=== PATIENT | male | born 1935 | race Caucasian/White ===

== ENCOUNTER → 2018-06-10 | Outpatient (CLI) | payer MEDICARE, BC | END | disposition home or self-care (01) | LOC: CFH 09:58 | PROVIDERS: ATTEND Physician Assistant | DX: R60.9 Edema, unspecified (principal); M79.604 Pain in right leg; M79.605 Pain in left leg; I10 Essential (primary) hypertension; M19.90 Unspecified osteoarthritis, unspecified site; E78.5 Hyperlipidemia, unspecified | CPT/HCPCS: 93970 ==

== ENCOUNTER → 2018-08-14 | Outpatient (CLI) | payer MEDICARE, BC ==
[~2018-08-14] MED LIST: ASPI-496 PO; BRIM5DRO3 EACHEYE; CALC-534 PO; CHON250C PO; FINA5TAB4 PO; FLUT9.9S NS; GLUC500T11 PO; LATA2.5D3 EACHEYE; LISI1TAB5 PO; MELO15TA24 PO; METO-99 PO; MULT-658 PO; TAMS-11 PO; VIT1CAPS10 PO; VITA400C43 PO
[2018-08-14 16:19] LABS: BASOPHILS # (AUTO) 0.02 x10^3/uL (0-0.1); BASOPHILS % (AUTO) 0 % (0-1); EOSINOPHILS # (AUTO) 0.04 x10^3/uL (0-0.4); EOSINOPHILS % (AUTO) 1 % (1-7); LYMPHOCYTES # (AUTO) 1.96 x10^3/uL (1-3.4); LYMPHOCYTES % (AUTO) 28 % (22-44); MD NO; MEAN CORPUSCULAR HEMOGLOBIN 34.6 pg (27.5-34.5); MEAN CORPUSCULAR HGB CONC 33.6 g/dL (33.2-36.2); MEAN CORPUSCULAR VOLUME 103.2 fL (81-97); MEAN PLATELET VOLUME 8.4 fL (7.4-10.4); MONOCYTES % (AUTO) 7 % (2-9); NEUTROPHILS # (AUTO) 4.61 x10^3/uL (1.8-6.8); NEUTROPHILS % (AUTO) 65 % (42-75); PLATELET COUNT 149 x10^3/uL (130-400); RED BLOOD COUNT 4.43 x10^6/uL (4.38-5.82); RED CELL DISTRIBUTION WIDTH 12.8 % (9.4-14.8)
[2018-08-14 16:23] LABS: MICROSCOPIC INDICATED
[2018-08-14 16:29] LABS: ALANINE AMINOTRANSFERASE 42 U/L (12-78); ALBUMIN 3.8 g/dL (3.4-5.0); ANION GAP 7 mmol/L (5-15); CALCIUM 9.2 mg/dL (8.5-10.1); CHLORIDE 102 mmol/L (98-107); CREATININE 0.95 mg/dL (0.7-1.3); PROTHROMBIN TIME 10.6 Seconds (9.6-11.5)
[2018-08-14 16:32] LABS: ALKALINE PHOSPHATASE 54 U/L (45-117); BILIRUBIN,TOTAL 0.7 mg/dL (0.2-1.0)
[2018-08-14 16:41] LABS: CULTURE INDICATED? NO
== END | disposition home or self-care (01) ==
LOC: STAR 15:00
PROVIDERS: ATTEND Neurological Surgery
DX: Z01.818 Encounter for other preprocedural examination (principal); J98.6 Disorders of diaphragm; M48.062 Spinal stenosis, lumbar region with neurogenic claudication; M71.38 Other bursal cyst, other site; M54.5 Low back pain
CPT/HCPCS: 36415; 71046; 72114; 80053; 81001; 85025; 85610; 85730; 93005

== ENCOUNTER 2018-08-19 05:38 | Inpatient (IN) | payer MEDICARE, BC ==
[~2018-08-19] VITALS: Ht 180.3 cm; Wt 93.3 kg
[2018-08-19] MEDS ORDERED: LACTATED RINGERS 1,000 ML IV SCH (06:25)
[2018-08-19] MEDS ORDERED: FENTANYL PF 100 MCG/2ML ONE ×2 (06:28→09:06)
[2018-08-19] MEDS ORDERED: CEFAZOLIN 1,000 MG ONE ×2 (06:29)
[2018-08-19] MEDS ORDERED: PROPOFOL 10 MG/ML, 20ML ONE (06:29)
[2018-08-19] MEDS ORDERED: DEXAMETHASONE 4 MG/ML, 1ML ONE ×2 (06:29)
[2018-08-19] MEDS ORDERED: ROCURONIUM 10MG/ML,5ML ONE (06:29)
[2018-08-19] MEDS ORDERED: SUCCINYLCHOLINE 20 MG/ML, 10ML ONE (06:29)
[2018-08-19] MEDS ORDERED: LIDOCAINE-MPF 2% ,5ML ONE (06:29)
[2018-08-19] MEDS ORDERED: PHENYLEPHRINE 10 MG/ML ONE (06:29)
[2018-08-19] MEDS ORDERED: MIDAZOLAM 1 MG/ML, 2ML ONE (06:29)
[2018-08-19] MEDS ORDERED: BUPIVACAINE/PF-EPI 0.5% 1:200K ONE (06:38)
[2018-08-19] MEDS ORDERED: VANCOMYCIN 1,000 MG ONE (06:39)
[2018-08-19] MEDS ORDERED: BACITRACIN 50,000 UNIT ONE (06:39)
[2018-08-19] MEDS ORDERED: THROMBIN 5,000 UNIT VIAL TP ONE (06:39)
[2018-08-19] MEDS ORDERED: ACETAMINOPHEN 500 MG TABLET ONE (06:41)
[2018-08-19] MEDS ORDERED: GABAPENTIN 300 MG CAPSULE ONE (06:41)
[2018-08-19] MEDS ORDERED: ESMOLOL 100 MG/10 ML ONE (06:52)
[2018-08-19] MEDS ORDERED: ACETAMINOPHEN 500 MG TABLET PO ONE (07:00)
[2018-08-19] MEDS ORDERED: GABAPENTIN 300 MG CAPSULE PO ONE (07:00)
[2018-08-19] MEDS ORDERED: MEPERIDINE/PF 25MG/0.5ML IVPush PRN (07:30)
[2018-08-19] MEDS ORDERED: HYDROmorphone 2 MG/ML, 1ML IVPush PRN (07:30)
[2018-08-19] MEDS ORDERED: FENTANYL PF 100 MCG/2ML IV PRN (07:30)
[2018-08-19] MEDS ORDERED: LABETALOL 5MG/ML, 20ML IV PRN ×2 (07:30→10:30)
[2018-08-19] MEDS ORDERED: DIAZEPAM 5 MG/ML, 2ML IVPush PRN (07:30)
[2018-08-19] MEDS ORDERED: hydrALAzine 20 MG/ML, 1ML IV PRN (07:30)
[2018-08-19] MEDS ORDERED: METOCLOPRAMIDE 5 MG/ML, 2ML IV PRN (07:30)
[2018-08-19] MEDS ORDERED: EPHEDRINE 50 MG/ML, 1ML IVPush PRN (07:30)
[2018-08-19] MEDS ORDERED: OXYcodone 5 MG/5 ML ORAL.SOL UDC PO PRN (07:30)
[2018-08-19] MEDS ORDERED: METOPROLOL 1 MG/ML, 5ML IV PRN (07:30)
[2018-08-19] MEDS ORDERED: OXYcodone 5 MG/5 ML ORAL.SOL UDC ONE (09:06)
[2018-08-19 09:55] VITALS: BP 121/62
[2018-08-19] MEDS ORDERED: DIPHENHYDRAMINE 50 MG/ML, 1ML IM PRN (10:30)
[2018-08-19] MEDS ORDERED: ONDANSETRON 2MG/ML, 2ML IV PRN (10:30)
[2018-08-19] MEDS ORDERED: FINASTERIDE MC SCH (10:30)
[2018-08-19] MEDS ORDERED: HYDROcodone/APAP 5/325 TABLET PO PRN (10:30)
[2018-08-19] MEDS ORDERED: ALPHAGAN MC SCH (10:30)
[2018-08-19] MEDS ORDERED: DIPHENHYDRAMINE 50 MG/ML, 1ML IVPush PRN (10:30)
[2018-08-19] MEDS ORDERED: DIPHENHYDRAMINE 50 MG CAPSULE PO PRN (10:30)
[2018-08-19] MEDS ORDERED: BISACODYL 10 MG SUPP PR PRN (10:30)
[2018-08-19] MEDS ORDERED: MAGNESIUM HYDROXIDE 8%, 30ML UDC PO PRN (10:30)
[2018-08-19] MEDS ORDERED: morphine SULFATE 10 MG/ML, 1ML IV PRN (10:30)
[2018-08-19] MEDS ORDERED: PROMETHAZINE 25 MG/ML, 1ML IM PRN (10:30)
[2018-08-19] MEDS ORDERED: METHOCARBAMOL 750 MG TABLET PO PRN (10:30)
[2018-08-19] MEDS ORDERED: D5%-0.9% NACL+KCL 20MEQ 1,000 ML IV SCH (10:30)
[2018-08-19 12:00] VITALS: BP 136/85
[2018-08-19] MEDS: OXYcodone/APAP 5/325MG TABLET PO PRN ×2 (13:16→23:08)
[2018-08-19] MEDS: CEFAZOLIN PMX 1GM/50ML 50 ML IVPB SCH ×2 (15:38→23:05)
[2018-08-19 20:12] VITALS: BP 150/84
[2018-08-19] MEDS: LATANOPROST OPHTH 0.005%, 2.5ML OP SCH (20:17)
[2018-08-19] MEDS ORDERED: LISINOPRIL 20 MG TABLET PO SCH (21:00)
[2018-08-19] MEDS ORDERED: HYDROCHLOROTHIAZIDE 12.5 MG CAPSULE PO SCH (21:00)
[2018-08-20 00:01] VITALS: BP 132/82
[2018-08-20] MEDS ORDERED: morphine SULFATE 10 MG/ML, 1ML IV PRN (03:30)
[2018-08-20] MEDS ORDERED: DIPHENHYDRAMINE 50 MG/ML, 1ML IVPush PRN (03:30)
[2018-08-20] MEDS ORDERED: PROMETHAZINE 25 MG/ML, 1ML IM PRN (03:30)
[2018-08-20] MEDS ORDERED: METHOCARBAMOL 750 MG TABLET PO PRN (03:30)
[2018-08-20] MEDS ORDERED: FINASTERIDE MC SCH (03:30)
[2018-08-20] MEDS ORDERED: ONDANSETRON 2MG/ML, 2ML IV PRN (03:30)
[2018-08-20] MEDS ORDERED: LABETALOL 5MG/ML, 20ML IV PRN (03:30)
[2018-08-20] MEDS ORDERED: DIPHENHYDRAMINE 50 MG/ML, 1ML IM PRN (03:30)
[2018-08-20] MEDS ORDERED: HYDROcodone/APAP 5/325 TABLET PO PRN (03:30)
[2018-08-20] MEDS ORDERED: MAGNESIUM HYDROXIDE 8%, 30ML UDC PO PRN (03:30)
[2018-08-20] MEDS ORDERED: DIPHENHYDRAMINE 50 MG CAPSULE PO PRN (03:30)
[2018-08-20] MEDS ORDERED: BISACODYL 10 MG SUPP PR PRN (03:30)
[2018-08-20] MEDS ORDERED: ALPHAGAN MC SCH (03:30)
[2018-08-20 03:46] VITALS: BP 135/72
[2018-08-20 05:25] LABS: ANION GAP 6 mmol/L (5-15); CALCIUM 7.5 mg/dL (8.5-10.1); CHLORIDE 107 mmol/L (98-107); CREATININE 0.88 mg/dL (0.7-1.3)
[2018-08-20 05:26] LABS: MD YES; MEAN CORPUSCULAR HEMOGLOBIN 35.9 pg (27.5-34.5); MEAN CORPUSCULAR HGB CONC 34.5 g/dL (33.2-36.2); MEAN CORPUSCULAR VOLUME 103.9 fL (81-97); MEAN PLATELET VOLUME 8.4 fL (7.4-10.4); PLATELET COUNT 117 x10^3/uL (130-400); RED BLOOD COUNT 3.53 x10^6/uL (4.38-5.82); RED CELL DISTRIBUTION WIDTH 13.2 % (9.4-14.8)
[2018-08-20] MEDS ORDERED: ENOXAPARIN 40 MG/0.4 ML SQ SCH (06:00)
[2018-08-20] MEDS ORDERED: ENOXAPARIN 40 MG/0.4 ML ONE (06:14)
[2018-08-20] MEDS: D5%-0.9% NACL+KCL 20MEQ 1,000 ML IV SCH ×2 (06:19→13:30)
[2018-08-20 07:28] LABS: BAND#(MANUAL) 0.16 x10^3/uL; BANDS%(MANUAL) 2 % (0-7); LYMPH#(MANUAL) 1.11 x10^3/uL (1-3.4); LYMPHS% (MANUAL) 14 % (22-44); MONOS#(MANUAL) 0.55 x10^3/uL (0.3-2.7); MONOS% (MANUAL) 7 % (2-9); SEG#(MANUAL) 6.08 x10^3/uL (1.8-6.8); SEGS% (MANUAL) 77 % (42-75)
[2018-08-20 07:33] LABS: <PLATELET ESTIMATE> DECREASED; <PLT MORPHOLOGY> NORMAL PLT MORPH; <RBC MORPHOLOGY> NORMAL
[2018-08-20 08:00] VITALS: BP 159/86
[2018-08-20] MEDS: FLUTICASONE NASAL SPRAY 16GM NAS SCH (09:00)
[2018-08-20] MEDS ORDERED: TAMSULOSIN 0.4 MG CAP.ER.24H PO SCH (09:00)
[2018-08-20] MEDS ORDERED: METOPROLOL TARTRATE 100 MG TABLET PO SCH (09:00)
[2018-08-20] MEDS: TAMSULOSIN 0.4 MG CAP.ER.24H PO SCH (09:33)
[2018-08-20] MEDS: HYDROCHLOROTHIAZIDE 12.5 MG CAPSULE PO SCH ×2 (09:33→21:08)
[2018-08-20] MEDS: LISINOPRIL 20 MG TABLET PO SCH ×2 (09:34→21:08)
[2018-08-20] MEDS: METOPROLOL TARTRATE 100 MG TABLET PO SCH (09:34)
[2018-08-20] MEDS ORDERED: SENNA/DOCUSATE TABLET ONE (09:39)
[2018-08-20] MEDS: SENNA/DOCUSATE TABLET PO SCH (09:41)
[2018-08-20 13:01] VITALS: BP 146/77
[2018-08-20] MEDS: OXYcodone/APAP 5/325MG TABLET PO PRN ×2 (13:14→21:08)
[2018-08-20 18:57] VITALS: BP 146/83
[2018-08-20] MEDS: LATANOPROST OPHTH 0.005%, 2.5ML OP SCH (21:09)
[2018-08-21 00:39] VITALS: BP 137/68
[2018-08-21] MEDS: OXYcodone/APAP 5/325MG TABLET PO PRN ×2 (03:14→08:04)
[2018-08-21 04:56] LABS: ANION GAP 5 mmol/L (5-15); CALCIUM 8.3 mg/dL (8.5-10.1); CHLORIDE 104 mmol/L (98-107); CREATININE 0.69 mg/dL (0.7-1.3); MEAN CORPUSCULAR HEMOGLOBIN 34.9 pg (27.5-34.5); MEAN CORPUSCULAR HGB CONC 33.8 g/dL (33.2-36.2); MEAN CORPUSCULAR VOLUME 103.1 fL (81-97); MEAN PLATELET VOLUME 8.7 fL (7.4-10.4); PLATELET COUNT 108 x10^3/uL (130-400); RED BLOOD COUNT 3.54 x10^6/uL (4.38-5.82); RED CELL DISTRIBUTION WIDTH 13.2 % (9.4-14.8)
[2018-08-21] MEDS ORDERED: ENOXAPARIN 40 MG/0.4 ML SQ SCH (06:00)
[2018-08-21 06:11] LABS: MD NO
[2018-08-21 06:12] LABS: BASOPHILS # (AUTO) 0.02 x10^3/uL (0-0.1); BASOPHILS % (AUTO) 0 % (0-1); EOSINOPHILS # (AUTO) 0.01 x10^3/uL (0-0.4); EOSINOPHILS % (AUTO) 0 % (1-7); LYMPHOCYTES # (AUTO) 1.41 x10^3/uL (1-3.4); LYMPHOCYTES % (AUTO) 23 % (22-44); MONOCYTES # (AUTO) 0.61 x10^3/uL (0.2-0.8); MONOCYTES % (AUTO) 10 % (2-9); NEUTROPHILS # (AUTO) 4.18 x10^3/uL (1.8-6.8); NEUTROPHILS % (AUTO) 67 % (42-75)
[2018-08-21 07:20] VITALS: BP 116/72
[2018-08-21] MEDS ORDERED: SENNA/DOCUSATE TABLET ONE (07:53)
[2018-08-21] MEDS: SENNA/DOCUSATE TABLET PO SCH (07:58)
[2018-08-21] MEDS: TAMSULOSIN 0.4 MG CAP.ER.24H PO SCH (07:58)
[2018-08-21] MEDS: METOPROLOL TARTRATE 100 MG TABLET PO SCH (07:59)
[2018-08-21] MEDS: LISINOPRIL 20 MG TABLET PO SCH (07:59)
[2018-08-21] MEDS: HYDROCHLOROTHIAZIDE 12.5 MG CAPSULE PO SCH (07:59)
[2018-08-21] MEDS ORDERED: OXYC-302 PO (08:56)
[2018-08-21] MEDS ORDERED: CYCL-259 PO (08:59)
[2018-08-21] MEDS: FLUTICASONE NASAL SPRAY 16GM NAS SCH (09:00)
[2018-08-21 13:04] VITALS: BP 140/82
== END 2018-08-21 14:00 | disposition home or self-care (01) | DRG 516 ==
LOC: OUT 05:38 → 4NOR 09:49 → OUT 09:51 → EDIP 09:51 → 4NOR 12:00 → DCLOUNGE 08-21 13:43
PROVIDERS: ADMIT Neurological Surgery; ATTEND Neurological Surgery
PROC: 00B20ZZ Excision of Dura Mater, Open Approach (ICD-10-PCS; 2018-08-19)
PROC: 00U20JZ Supplement Dura Mater with Synthetic Substitute, Open Approach (ICD-10-PCS; 2018-08-19)
PROC: 01NB0ZZ Release Lumbar Nerve, Open Approach (ICD-10-PCS; principal; 2018-08-19 07:00)
DX: M48.062 Spinal stenosis, lumbar region with neurogenic claudication (principal); G97.41 Accidental puncture or laceration of dura during a procedure; I10 Essential (primary) hypertension; M71.38 Other bursal cyst, other site; M46.86 Other specified inflammatory spondylopathies, lumbar region; M51.16 Intervertebral disc disorders with radiculopathy, lumbar region; Y83.8 Other surgical procedures as the cause of abnormal reaction of the patient, or of later complication, without mention of misadventure at the time of the procedure; Y92.234 Operating room of hospital as the place of occurrence of the external cause
CPT/HCPCS: 36415; 72100; 80048; 85025; G0378; J0690; J1100; J1650; J2250; J2704; J3010; J3370; J3490; C1781; J0330; J2270; J2370; J3480; J7120

== ENCOUNTER 2019-06-16 14:22 | Inpatient (IN) | payer MEDICARE, BC ==
[~2019-06-16] VITALS: Ht 180.3 cm; Wt 90.7 kg
[~2019-06-16 14:22] MED LIST changes: +CYCL-259 PO; +LISI1TAB19 PO; -LISI1TAB5 PO; +OCUVITE SOFTGE1 EACH PO; +OXYC-302 PO; -VIT1CAPS10 PO
--- NOTE | 2019-06-16 15:16 | NUR ---
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
[2019-06-16 15:31] LABS: BASOPHILS # (AUTO) 0.02 x10^3/uL (0-0.1); BASOPHILS % (AUTO) 0 % (0-1); EOSINOPHILS # (AUTO) 0.03 x10^3/uL (0-0.4); EOSINOPHILS % (AUTO) 0 % (1-7); LYMPHOCYTES # (AUTO) 1.93 x10^3/uL (1-3.4); LYMPHOCYTES % (AUTO) 19 % (22-44); MD NO; MEAN CORPUSCULAR HEMOGLOBIN 34.6 pg (27.5-34.5); MEAN CORPUSCULAR HGB CONC 33.4 g/dL (33.2-36.2); MEAN CORPUSCULAR VOLUME 103.5 fL (81-97); MEAN PLATELET VOLUME 8.1 fL (7.4-10.4); MONOCYTES # (AUTO) 0.84 x10^3/uL (0.2-0.8); MONOCYTES % (AUTO) 8 % (2-9); NEUTROPHILS # (AUTO) 7.32 x10^3/uL (1.8-6.8); NEUTROPHILS % (AUTO) 72 % (42-75); PLATELET COUNT 156 x10^3/uL (130-400); RED BLOOD COUNT 3.26 x10^6/uL (4.38-5.82)
[2019-06-16 15:33] LABS: ALBUMIN 3.9 g/dL (3.4-5.0); ANION GAP 10 mmol/L (5-15); CALCIUM 9.2 mg/dL (8.5-10.1); CHLORIDE 107 mmol/L (98-107); CREATININE 3.68 mg/dL (0.7-1.3)
--- NOTE | 2019-06-16 15:49 | NUR ---
PT HERE WITH COMPLAINTS OF FREQUENT URINATION. PER PT'S DAUGHTER, PT ALSO SENT FROM [facility]MENT [facility] TODAY REGARDING LABS DRAWN YESTERDAY. DAUGHTER STATES "THEY SAID HIS KIDNEY FUNCTION IS SIGNIFICANTLY DECREASED FROM PREVIOUS STUDY." PT AAO X4, ATTACHED TO MONITOR AND DRESSED IN GOWN. PT STATES HE WAS ON A MEDICATION AND THE DOCTOR TOLD HIM TO STOP TAKING IT BUT THAT WAS "A FEW WEEKS AGO." UA PROVIDED AND SENT TO LAB. DAUGHTER AT BEDSIDE AND CALL PARIS IVAN.
[2019-06-16 16:04] LABS: MICROSCOPIC AUTO
[2019-06-16 16:05] LABS: CULTURE INDICATED? NO
--- NOTE | 2019-06-16 16:20 | NUR ---
PT RESTING IN GURNEY WITH DAUGHTER AT BEDSIDE, CALL LIGHT WITHIN REACH, NAD.
--- NOTE | 2019-06-16 16:38 | NUR ---
AT BEDSIDE TO DISCUSS POC.
--- NOTE | 2019-06-16 17:01 | NUR ---
PT RESTING IN [facility], CALL LIGHT WITHIN REACH, NAD. PIV ESTABLISHED BY THIS RN. PLAN TO ADMIT.
--- NOTE | 2019-06-16 17:18 | NUR ---
REPORT GIVEN TO ALISA ARZOLA. PER ADMITTING PA, PLACE SANTORO CATH IF BLADDER SCAN <400ML.
--- NOTE | 2019-06-16 17:24 | NUR ---
BLADDER SCAN 109. PER PA, HOLD OFF ON SANTORO AT THIS TIME. PA TO DISCUSS WITH ER .
--- NOTE | 2019-06-16 17:24 | NUR ---
HOSPITALIST PA AT BEDSIDE.
[2019-06-16] MEDS ORDERED: CYCLOBENZAPRINE 10 MG TABLET PO PRN (17:30)
[2019-06-16] MEDS ORDERED: ACETAMINOPHEN 325 MG TABLET PO PRN (18:00)
[2019-06-16] MEDS: SODIUM CHLORIDE 0.9% 1,000 ML IV SCH (18:22)
[2019-06-16] MEDS: HEPARIN 5,000 UNITS/ML, 1ML SQ SCH (18:22)
[2019-06-16 18:25] VITALS: BP 106/74
[2019-06-16 19:25] VITALS: BP 100/64
[2019-06-16 19:26] VITALS: BP 135/82
[2019-06-16] MEDS ORDERED: MAGNESIUM SULFATE PMX 2GM/50ML 50 ML IV ONE (20:30)
[2019-06-16] MEDS: LATANOPROST OPHTH 0.005%, 2.5ML EACHEYE SCH (21:26)
[2019-06-17 00:42] VITALS: BP 152/69
[2019-06-17] MEDS: SODIUM CHLORIDE 0.9% 1,000 ML IV SCH (03:56)
[2019-06-17] MEDS: HEPARIN 5,000 UNITS/ML, 1ML SQ SCH ×3 (03:56→21:10)
[2019-06-17] MEDS ORDERED: FLU VACC QS2019-20 36MOS UP/PF 0.5 ML IM-VACC ONE (05:30)
[2019-06-17 06:05] LABS: BASOPHILS # (AUTO) 0.02 x10^3/uL (0-0.1); BASOPHILS % (AUTO) 0 % (0-1); EOSINOPHILS # (AUTO) 0.09 x10^3/uL (0-0.4); EOSINOPHILS % (AUTO) 1 % (1-7); LYMPHOCYTES # (AUTO) 1.77 x10^3/uL (1-3.4); LYMPHOCYTES % (AUTO) 22 % (22-44); MD NO; MEAN CORPUSCULAR HEMOGLOBIN 35.4 pg (27.5-34.5); MEAN CORPUSCULAR HGB CONC 33.5 g/dL (33.2-36.2); MEAN CORPUSCULAR VOLUME 105.5 fL (81-97); MEAN PLATELET VOLUME 8.1 fL (7.4-10.4); MONOCYTES # (AUTO) 0.82 x10^3/uL (0.2-0.8); MONOCYTES % (AUTO) 10 % (2-9); NEUTROPHILS # (AUTO) 5.42 x10^3/uL (1.8-6.8); NEUTROPHILS % (AUTO) 67 % (42-75); PLATELET COUNT 126 x10^3/uL (130-400); RED BLOOD COUNT 3.15 x10^6/uL (4.38-5.82); RED CELL DISTRIBUTION WIDTH 13.3 % (9.4-14.8)
[2019-06-17 06:16] LABS: ALBUMIN 3.7 g/dL (3.4-5.0); ANION GAP 10 mmol/L (5-15); CALCIUM 8.9 mg/dL (8.5-10.1); CHLORIDE 110 mmol/L (98-107)
[2019-06-17 06:29] LABS: ALANINE AMINOTRANSFERASE 38 U/L (12-78); ALKALINE PHOSPHATASE 50 U/L (45-117); BILIRUBIN,TOTAL 0.7 mg/dL (0.2-1.0)
[2019-06-17 07:05] VITALS: BP 155/73
[2019-06-17] MEDS: TAMSULOSIN 0.4 MG CAP.ER.24H PO SCH (09:00)
[2019-06-17] MEDS: FINASTERIDE 5 MG TABLET PO SCH (09:30)
[2019-06-17] MEDS: METOPROLOL TARTRATE 100 MG TABLET PO SCH (09:30)
[2019-06-17] MEDS: MULTIVITAMIN 1 TABLET PO SCH (09:30)
[2019-06-17 13:30] VITALS: BP 166/79
[2019-06-17] MEDS ORDERED: MELATONIN 3 MG TABLET PO PRN (17:00)
[2019-06-17] MEDS ORDERED: CYANOCOBALAMIN 1,000 MCG/ML, 1ML IM SCH (19:00)
[2019-06-17 21:04] VITALS: BP 158/89
[2019-06-17] MEDS: LATANOPROST OPHTH 0.005%, 2.5ML EACHEYE SCH (21:10)
[2019-06-18 01:12] VITALS: BP 149/82
[2019-06-18 05:11] LABS: BASOPHILS # (AUTO) 0.02 x10^3/uL (0-0.1); BASOPHILS % (AUTO) 0 % (0-1); EOSINOPHILS # (AUTO) 0.11 x10^3/uL (0-0.4); EOSINOPHILS % (AUTO) 2 % (1-7); LYMPHOCYTES # (AUTO) 1.57 x10^3/uL (1-3.4); LYMPHOCYTES % (AUTO) 21 % (22-44); MD NO; MEAN CORPUSCULAR HEMOGLOBIN 35.4 pg (27.5-34.5); MEAN CORPUSCULAR HGB CONC 33.7 g/dL (33.2-36.2); MEAN CORPUSCULAR VOLUME 105.1 fL (81-97); MEAN PLATELET VOLUME 8.5 fL (7.4-10.4); MONOCYTES # (AUTO) 0.75 x10^3/uL (0.2-0.8); MONOCYTES % (AUTO) 10 % (2-9); NEUTROPHILS % (AUTO) 67 % (42-75); PLATELET COUNT 101 x10^3/uL (130-400); RED BLOOD COUNT 3.02 x10^6/uL (4.38-5.82); RED CELL DISTRIBUTION WIDTH 13.2 % (9.4-14.8)
[2019-06-18 05:30] LABS: ANION GAP 9 mmol/L (5-15); CALCIUM 8.9 mg/dL (8.5-10.1); CHLORIDE 113 mmol/L (98-107); CREATININE 2.99 mg/dL (0.7-1.3)
[2019-06-18] MEDS: HEPARIN 5,000 UNITS/ML, 1ML SQ SCH ×2 (05:36→13:49)
[2019-06-18 07:05] VITALS: BP 158/78
[2019-06-18] MEDS: METOPROLOL TARTRATE 100 MG TABLET PO SCH (08:44)
[2019-06-18] MEDS: MULTIVITAMIN 1 TABLET PO SCH (08:44)
[2019-06-18] MEDS: FINASTERIDE 5 MG TABLET PO SCH (08:44)
[2019-06-18] MEDS: TAMSULOSIN 0.4 MG CAP.ER.24H PO SCH (08:45)
[2019-06-18 13:10] VITALS: BP 137/63
== END 2019-06-18 20:45 | disposition home or self-care (01) | DRG 684 ==
LOC: ED 16:52 → EDIP 16:53 → ED 17:02 → 3N 17:38
PROVIDERS: ADMIT Internal Medicine; ATTEND Internal Medicine
DX: N17.0 Acute kidney failure with tubular necrosis (principal); N40.1 Benign prostatic hyperplasia with lower urinary tract symptoms; I12.9 Hypertensive chronic kidney disease with stage 1 through stage 4 chronic kidney disease, or unspecified chronic kidney disease; N32.9 Bladder disorder, unspecified; D72.829 Elevated white blood cell count, unspecified; D75.89 Other specified diseases of blood and blood-forming organs; E78.5 Hyperlipidemia, unspecified; E86.0 Dehydration; N18.2 Chronic kidney disease, stage 2 (mild); Z66 Do not resuscitate; Z87.891 Personal history of nicotine dependence; D63.8 Anemia in other chronic diseases classified elsewhere; R35.0 Frequency of micturition; R39.12 Poor urinary stream
CPT/HCPCS: 36415; 76770; 80048; 80053; 81001; 82040; 82607; 83735; 84100; 84443; 85025; 99285; G0103; G0378; J1644; J3420; J3475; J7030

== ENCOUNTER 2019-10-06 21:15 | Inpatient (IN) | payer MEDICARE, BC ==
[~2019-10-06] VITALS: Ht 180.3 cm; Wt 87.5 kg
--- NOTE | 2019-10-06 21:43 | NUR ---
PT STRIPPED OF HOME CLOTHING, PLACED IN GOWN. PT ON VITALS MONITORS. PT A&OX4. BILAT BEDRAILS UP, CALL LIGHT WITHIN REACH. WILL CONTINUE TO MONITOR.
--- NOTE | 2019-10-06 22:50 | NUR ---
PT RESTING CALMLY IN BED. NO STATED COMPLAINTS AT THIS TIME.
--- NOTE | 2019-10-06 23:40 | NUR ---
ATTEMPTED TO AMBULATE PT WITH WALKER. PT UNABLE TO STAND WITH WALKER, STATED HIS RIGHT HIP PAIN IS TOO SEVERE. ERP AWARE, PT TO BE ADMITTED.
--- NOTE | 2019-10-07 00:14 | NUR ---
IV STARTED, LABS DRAWN. PT RESTING CALMLY IN BED. WILL CONTINUE TO MONITOR. AWAITING ROOM ASSIGNMENT
[2019-10-07] MEDS ORDERED: AMLODIPINE PO (00:16)
[2019-10-07 00:23] LABS: BASOPHILS # (AUTO) 0.02 x10^3/uL (0-0.1); BASOPHILS % (AUTO) 0 % (0-1); EOSINOPHILS # (AUTO) 0.05 x10^3/uL (0-0.4); EOSINOPHILS % (AUTO) 1 % (1-7); LYMPHOCYTES # (AUTO) 1.56 x10^3/uL (1-3.4); LYMPHOCYTES % (AUTO) 20 % (22-44); MD NO; MEAN CORPUSCULAR HEMOGLOBIN 34.3 pg (27.5-34.5); MEAN CORPUSCULAR HGB CONC 33.8 g/dL (33.2-36.2); MEAN CORPUSCULAR VOLUME 101.5 fL (81-97); MEAN PLATELET VOLUME 6.8 fL (7.4-10.4); MONOCYTES # (AUTO) 0.55 x10^3/uL (0.2-0.8); MONOCYTES % (AUTO) 7 % (2-9); NEUTROPHILS # (AUTO) 5.81 x10^3/uL (1.8-6.8); NEUTROPHILS % (AUTO) 73 % (42-75); PLATELET COUNT 214 x10^3/uL (130-400); RED BLOOD COUNT 3.28 x10^6/uL (4.38-5.82)
[2019-10-07 00:29] LABS: ALBUMIN 3.5 g/dL (3.4-5.0); ANION GAP 7 mmol/L (5-15); CALCIUM 9.2 mg/dL (8.5-10.1); CHLORIDE 103 mmol/L (98-107); CREATININE 1.38 mg/dL (0.7-1.3)
[2019-10-07 00:32] LABS: TROPONIN I < 0.015 ng/mL (0.000-0.045)
--- NOTE | 2019-10-07 01:10 | NUR ---
PT ATTEMPTING FOR VOID WITH URINAL. PT GIVEN NON SKID SOCKS. BEDSIDE REPORT GIVEN TO ROB CUELLAR
--- NOTE | 2019-10-07 01:12 | NUR ---
ASSUMED CARE OF PT REPORT FROM MARIA LUISA
--- NOTE | 2019-10-07 01:49 | NUR ---
REPORT TO COMPA PINEDA TO FLOOR WITH PT
[2019-10-07] MEDS ORDERED: morphine SULFATE 10 MG/ML, 1ML IVPush PRN (02:00)
[2019-10-07] MEDS ORDERED: ONDANSETRON 2MG/ML, 2ML IVPush PRN (02:00)
[2019-10-07 03:05] VITALS: BP 174/81
[2019-10-07 03:14] VITALS: BP 153/85
[2019-10-07 07:41] VITALS: BP 161/80
[2019-10-07 14:08] VITALS: BP 157/85
[2019-10-07] MEDS: FUROSEMIDE 20 MG/2 ML IV SCH (17:12)
[2019-10-07 19:25] VITALS: BP 151/76
[2019-10-07] MEDS: LATANOPROST OPHTH 0.005%, 2.5ML EACHEYE SCH (22:34)
[2019-10-07] MEDS: ACETAMINOPHEN 325 MG TABLET PO PRN (22:48)
[2019-10-07] MEDS: CYCLOBENZAPRINE 10 MG TABLET PO PRN (22:48)
[2019-10-08 01:22] VITALS: BP 158/80
[2019-10-08 07:35] LABS: BASOPHILS # (AUTO) 0.02 x10^3/uL (0-0.1); BASOPHILS % (AUTO) 0 % (0-1); EOSINOPHILS # (AUTO) 0.06 x10^3/uL (0-0.4); EOSINOPHILS % (AUTO) 1 % (1-7); LYMPHOCYTES # (AUTO) 1.86 x10^3/uL (1-3.4); LYMPHOCYTES % (AUTO) 29 % (22-44); MD NO; MEAN CORPUSCULAR HEMOGLOBIN 33.7 pg (27.5-34.5); MEAN CORPUSCULAR HGB CONC 33.3 g/dL (33.2-36.2); MEAN CORPUSCULAR VOLUME 101.3 fL (81-97); MONOCYTES # (AUTO) 0.56 x10^3/uL (0.2-0.8); MONOCYTES % (AUTO) 9 % (2-9); NEUTROPHILS # (AUTO) 3.94 x10^3/uL (1.8-6.8); NEUTROPHILS % (AUTO) 61 % (42-75); PLATELET COUNT 199 x10^3/uL (130-400); RED BLOOD COUNT 3.37 x10^6/uL (4.38-5.82); RED CELL DISTRIBUTION WIDTH 14.3 % (9.4-14.8)
[2019-10-08 07:45] VITALS: BP 157/84
[2019-10-08 07:46] LABS: ANION GAP 8 mmol/L (5-15); CALCIUM 9.4 mg/dL (8.5-10.1); CHLORIDE 106 mmol/L (98-107); CREATININE 1.31 mg/dL (0.7-1.3)
[2019-10-08] MEDS: FUROSEMIDE 20 MG/2 ML IV SCH ×3 (08:15→22:02)
[2019-10-08] MEDS: TAMSULOSIN 0.4 MG CAP.ER.24H PO SCH (08:15)
[2019-10-08] MEDS ORDERED: POTASSIUM CHLORIDE 20 MEQ TAB.ER.PRT PO ONE ×2 (08:30→18:00)
[2019-10-08 15:10] VITALS: BP 132/75
[2019-10-08] MEDS: CYCLOBENZAPRINE 10 MG TABLET PO PRN (20:41)
[2019-10-08] MEDS: ACETAMINOPHEN 325 MG TABLET PO PRN (20:41)
[2019-10-08] MEDS: LATANOPROST OPHTH 0.005%, 2.5ML EACHEYE SCH (20:41)
[2019-10-08] MEDS: HEPARIN 5,000 UNITS/ML, 1ML SQ SCH (20:44)
[2019-10-08 21:24] VITALS: BP 131/75
[2019-10-09 00:17] VITALS: BP 126/77
[2019-10-09] MEDS: HEPARIN 5,000 UNITS/ML, 1ML SQ SCH ×3 (04:23→20:42)
[2019-10-09 05:35] LABS: BASOPHILS # (AUTO) 0.02 x10^3/uL (0-0.1); BASOPHILS % (AUTO) 0 % (0-1); EOSINOPHILS # (AUTO) 0.06 x10^3/uL (0-0.4); EOSINOPHILS % (AUTO) 1 % (1-7); LYMPHOCYTES % (AUTO) 33 % (22-44); MD NO; MEAN CORPUSCULAR HEMOGLOBIN 33.7 pg (27.5-34.5); MEAN CORPUSCULAR HGB CONC 32.7 g/dL (33.2-36.2); MEAN CORPUSCULAR VOLUME 102.9 fL (81-97); MEAN PLATELET VOLUME 6.8 fL (7.4-10.4); MONOCYTES # (AUTO) 0.57 x10^3/uL (0.2-0.8); MONOCYTES % (AUTO) 10 % (2-9); NEUTROPHILS # (AUTO) 3.23 x10^3/uL (1.8-6.8); NEUTROPHILS % (AUTO) 56 % (42-75); PLATELET COUNT 180 x10^3/uL (130-400); RED BLOOD COUNT 3.03 x10^6/uL (4.38-5.82); RED CELL DISTRIBUTION WIDTH 14.5 % (9.4-14.8)
[2019-10-09 05:49] LABS: ANION GAP 5 mmol/L (5-15); CALCIUM 8.7 mg/dL (8.5-10.1); CHLORIDE 105 mmol/L (98-107)
[2019-10-09 05:51] LABS: CREATININE 1.49 mg/dL (0.7-1.3)
[2019-10-09 08:18] VITALS: BP 129/72
[2019-10-09] MEDS: FUROSEMIDE 20 MG/2 ML IV SCH (09:46)
[2019-10-09] MEDS: TAMSULOSIN 0.4 MG CAP.ER.24H PO SCH (09:47)
[2019-10-09] MEDS ORDERED: DOCUSATE 50 MG/5 ML, 10ML UDC PO PRN (13:30)
[2019-10-09] MEDS ORDERED: SENNA/DOCUSATE TABLET PO PRN (13:30)
[2019-10-09 13:35] VITALS: BP 118/68
[2019-10-09 20:04] VITALS: BP 157/81
[2019-10-09] MEDS: LATANOPROST OPHTH 0.005%, 2.5ML EACHEYE SCH (20:42)
[2019-10-10 00:24] VITALS: BP 137/76
[2019-10-10] MEDS: HEPARIN 5,000 UNITS/ML, 1ML SQ SCH ×3 (05:04→20:20)
[2019-10-10 08:25] VITALS: BP 138/74
[2019-10-10] MEDS: TAMSULOSIN 0.4 MG CAP.ER.24H PO SCH (09:51)
[2019-10-10 14:00] VITALS: BP 117/64
[2019-10-10 20:00] VITALS: BP 153/86
[2019-10-10] MEDS: LATANOPROST OPHTH 0.005%, 2.5ML EACHEYE SCH (20:19)
[2019-10-11 02:14] VITALS: BP 131/78
[2019-10-11] MEDS: HEPARIN 5,000 UNITS/ML, 1ML SQ SCH ×2 (05:18→13:00)
[2019-10-11 07:13] VITALS: BP 168/92
[2019-10-11] MEDS: TAMSULOSIN 0.4 MG CAP.ER.24H PO SCH (08:58)
[2019-10-11] MEDS ORDERED: METOPROLOL TARTRATE 100 MG TABLET PO SCH (09:00)
[2019-10-11] MEDS ORDERED: TRAM50TA2 PO (11:23)
== END 2019-10-11 15:29 | DRG 291 ==
LOC: ED 10-07 00:50 → EDIP 10-07 01:21 → INTOOBSV 10-07 01:21 → 3N 10-07 01:58 → OBSVTOIN 10-07 10:42
PROVIDERS: ADMIT Internal Medicine; ATTEND Internal Medicine
DX: I13.0 Hypertensive heart and chronic kidney disease with heart failure and stage 1 through stage 4 chronic kidney disease, or unspecified chronic kidney disease (principal); I50.33 Acute on chronic diastolic (congestive) heart failure; M25.551 Pain in right hip; G89.29 Other chronic pain; G89.11 Acute pain due to trauma; Z68.26 Body mass index [BMI] 26.0-26.9, adult; S50.11XA Contusion of right forearm, initial encounter; H40.9 Unspecified glaucoma; I35.8 Other nonrheumatic aortic valve disorders; M16.11 Unilateral primary osteoarthritis, right hip; N18.2 Chronic kidney disease, stage 2 (mild); N32.9 Bladder disorder, unspecified; N40.0 Benign prostatic hyperplasia without lower urinary tract symptoms; R62.7 Adult failure to thrive; W18.30XA Fall on same level, unspecified, initial encounter; Y93.89 Activity, other specified; Y92.009 Unspecified place in unspecified non-institutional (private) residence as the place of occurrence of the external cause; Y99.8 Other external cause status; Z87.891 Personal history of nicotine dependence
CPT/HCPCS: 36415; 72192; 80048; 82040; 82607; 83880; 84484; 85025; 93005; 93306; 99285; G0378; J1644; J1940

== ENCOUNTER 2019-11-04 14:09 | Inpatient (IN) | payer MEDICARE, BC ==
[~2019-11-04] VITALS: Ht 180.3 cm; Wt 83.5 kg
[~2019-11-04 14:09] MED LIST changes: +AMLODIPINE PO; +TRAM50TA2 PO
--- NOTE | 2019-11-04 14:17 | NUR ---
PT BIB [facility] FOR MULTIPLE COMPLAINTS- HIP PAIN, WEAKNESS, DIFFICULTY WITH URINATION, AND DIFFICULTY HAVING BM. WAS DISCHARGED FROM [facility] YESTERDAY AFTER SPENDING 10 DAYS THERE POST OP FROM [facility] AFTER A TURP. PT REPORTS HE WAS HAVING DIFFICULTY WITH URINATION THE LAST TWO DAYS AND WAS DC'D WITH HOME HEALTH. HOME HEALTH NURSE SAW HIM THIS MORNING AND SUGGESTED HE GO TO THE ER. PT NOTED TO BE TACHY AT 115BPM. RESTING ON GURNEY. HELPED TO CHANGE INTO GOWN. NADN. VSS OTHERWISE.
--- NOTE | 2019-11-04 15:00 | NUR ---
PT RESTING IN BED. SANTORO PLACED.
[2019-11-04 15:02] LABS: BASOPHILS # (AUTO) 0.03 x10^3/uL (0-0.1); BASOPHILS % (AUTO) 0 % (0-1); EOSINOPHILS # (AUTO) 0.06 x10^3/uL (0-0.4); EOSINOPHILS % (AUTO) 1 % (1-7); LYMPHOCYTES % (AUTO) 17 % (22-44); MD NO; MEAN CORPUSCULAR HGB CONC 33.6 g/dL (33.2-36.2); MEAN CORPUSCULAR VOLUME 98.2 fL (81-97); MEAN PLATELET VOLUME 7.5 fL (7.4-10.4); MONOCYTES # (AUTO) 0.63 x10^3/uL (0.2-0.8); MONOCYTES % (AUTO) 7 % (2-9); NEUTROPHILS # (AUTO) 6.72 x10^3/uL (1.8-6.8); NEUTROPHILS % (AUTO) 75 % (42-75); PLATELET COUNT 207 x10^3/uL (130-400); RED BLOOD COUNT 3.51 x10^6/uL (4.38-5.82); RED CELL DISTRIBUTION WIDTH 13.8 % (9.4-14.8)
[2019-11-04 15:12] LABS: ALBUMIN 2.8 g/dL (3.4-5.0); ANION GAP 10 mmol/L (5-15); CHLORIDE 101 mmol/L (98-107)
[2019-11-04 15:16] LABS: ALANINE AMINOTRANSFERASE 23 U/L (12-78); ALKALINE PHOSPHATASE 99 U/L (45-117); BILIRUBIN,TOTAL 0.5 mg/dL (0.2-1.0); TOTAL PROTEIN 6.6 g/dL (6.4-8.2)
[2019-11-04 15:21] LABS: INTERNATIONAL NORMALIZED RATIO 0.94 (0.93-1.1)
[2019-11-04 16:08] LABS: CULTURE INDICATED? YES; MICROSCOPIC INDICATED
--- NOTE | 2019-11-04 16:30 | NUR ---
PT RESTING IN BED, CALL LIGHT IN REACH
[2019-11-04] MEDS ORDERED: HYDROmorphone 1 MG/ML, 1ML INJ ONE ×2 (16:37→18:17)
[2019-11-04] MEDS: HYDROmorphone 2 MG/ML, 1ML IV PRN ×2 (16:41→18:21)
[2019-11-04] MEDS ORDERED: TAMSULOSIN 0.4 MG CAP.ER.24H PO ONE (17:30)
[2019-11-04] MEDS ORDERED: hydrALAzine 20 MG/ML, 1ML IVPush PRN (18:00)
[2019-11-04] MEDS ORDERED: ONDANSETRON 2MG/ML, 2ML IVPush PRN (18:00)
[2019-11-04] MEDS ORDERED: ONDANSETRON ODT 4 MG PO PRN (18:00)
--- NOTE | 2019-11-04 18:13 | NUR ---
PT WANTS PAIN MED IN ORDER FOR US TO BE DONE - US DELAY
[2019-11-04] MEDS ORDERED: HEPARIN 5,000 UNITS/ML, 1ML ONE (18:17)
[2019-11-04] MEDS: HEPARIN 5,000 UNITS/ML, 1ML SQ SCH (18:20)
--- NOTE | 2019-11-04 18:29 | NUR ---
REPORT CALLED TO SHIRA CUELLAR
[2019-11-04 19:55] VITALS: BP 163/97
[2019-11-04] MEDS ORDERED: METO-290 PO (20:38)
[2019-11-04] MEDS: BRIMONIDINE TARTRATE OPHTH 0.15%, 5ML EACHEYE SCH (21:00)
[2019-11-04] MEDS: LATANOPROST OPHTH 0.005%, 2.5ML EACHEYE SCH (21:00)
[2019-11-04] MEDS: POLYETHYLENE GLYCOL 17 GM PACKET PO SCH (21:30)
[2019-11-04] MEDS: LACTATED RINGERS 1,000 ML IV SCH (21:32)
[2019-11-04] MEDS: morphine SULFATE 10 MG/ML, 1ML IVPush PRN (21:46)
[2019-11-04] MEDS ORDERED: METOPROLOL TARTRATE 50 MG TAB PO SCH (22:00)
[2019-11-04 22:24] LABS: CREATININE,URINE RANDOM 34.4 mg/dL
[2019-11-05 01:15] VITALS: BP 145/88
[2019-11-05] MEDS: HEPARIN 5,000 UNITS/ML, 1ML SQ SCH ×3 (01:39→16:12)
[2019-11-05] MEDS: morphine SULFATE 10 MG/ML, 1ML IVPush PRN ×4 (05:40→23:27)
[2019-11-05] MEDS: LACTATED RINGERS 1,000 ML IV SCH ×2 (05:40→16:10)
[2019-11-05] MEDS: METOPROLOL SUCCINATE 100 MG TAB.ER.24H PO SCH (05:41)
[2019-11-05 06:21] LABS: BASOPHILS # (AUTO) 0.03 x10^3/uL (0-0.1); BASOPHILS % (AUTO) 0 % (0-1); EOSINOPHILS # (AUTO) 0.05 x10^3/uL (0-0.4); EOSINOPHILS % (AUTO) 1 % (1-7); LYMPHOCYTES # (AUTO) 1.49 x10^3/uL (1-3.4); LYMPHOCYTES % (AUTO) 16 % (22-44); MD NO; MEAN CORPUSCULAR HEMOGLOBIN 32.9 pg (27.5-34.5); MEAN CORPUSCULAR HGB CONC 33.6 g/dL (33.2-36.2); MEAN CORPUSCULAR VOLUME 97.9 fL (81-97); MEAN PLATELET VOLUME 7.5 fL (7.4-10.4); MONOCYTES # (AUTO) 0.62 x10^3/uL (0.2-0.8); MONOCYTES % (AUTO) 7 % (2-9); NEUTROPHILS # (AUTO) 7.18 x10^3/uL (1.8-6.8); NEUTROPHILS % (AUTO) 77 % (42-75); PLATELET COUNT 172 x10^3/uL (130-400); RED BLOOD COUNT 3.21 x10^6/uL (4.38-5.82); RED CELL DISTRIBUTION WIDTH 14.2 % (9.4-14.8)
[2019-11-05 06:37] LABS: ANION GAP 9 mmol/L (5-15); CALCIUM 8.9 mg/dL (8.5-10.1); CHLORIDE 102 mmol/L (98-107)
[2019-11-05 06:40] VITALS: BP 156/92
[2019-11-05 06:50] LABS: CREATININE 3.65 mg/dL (0.7-1.3)
[2019-11-05] MEDS: MULTIVITAMIN 1 TABLET PO SCH (09:00)
[2019-11-05] MEDS: FLUTICASONE NASAL SPRAY 16GM NAS SCH (09:00)
[2019-11-05] MEDS ORDERED: METOPROLOL TARTRATE 100 MG TAB PO SCH (09:00)
[2019-11-05] MEDS: BRIMONIDINE TARTRATE OPHTH 0.15%, 5ML EACHEYE SCH ×2 (09:00→21:00)
[2019-11-05] MEDS: POLYETHYLENE GLYCOL 17 GM PACKET PO SCH ×2 (09:01→21:00)
[2019-11-05] MEDS ORDERED: GLYCERIN ADULT SUPP PR ONE (09:30)
[2019-11-05] MEDS ORDERED: LACTULOSE 10 GM/15 ML UDC PO PRN (09:30)
[2019-11-05] MEDS ORDERED: HYDR25CA PO (11:37)
[2019-11-05 12:14] VITALS: BP 156/80
[2019-11-05 20:30] VITALS: BP 140/82
[2019-11-05] MEDS: LATANOPROST OPHTH 0.005%, 2.5ML EACHEYE SCH (21:00)
[2019-11-06] MEDS: LACTATED RINGERS 1,000 ML IV SCH ×2 (01:00→10:07)
[2019-11-06 01:31] VITALS: BP 143/75
[2019-11-06] MEDS: HEPARIN 5,000 UNITS/ML, 1ML SQ SCH ×3 (02:11→18:21)
[2019-11-06] MEDS: METOPROLOL SUCCINATE 100 MG TAB.ER.24H PO SCH (05:04)
[2019-11-06 05:33] LABS: BASOPHILS # (AUTO) 0.02 x10^3/uL (0-0.1); BASOPHILS % (AUTO) 0 % (0-1); EOSINOPHILS # (AUTO) 0.05 x10^3/uL (0-0.4); EOSINOPHILS % (AUTO) 1 % (1-7); LYMPHOCYTES % (AUTO) 14 % (22-44); MD NO; MEAN CORPUSCULAR HEMOGLOBIN 32.9 pg (27.5-34.5); MEAN CORPUSCULAR HGB CONC 33.4 g/dL (33.2-36.2); MEAN CORPUSCULAR VOLUME 98.6 fL (81-97); MEAN PLATELET VOLUME 7.4 fL (7.4-10.4); MONOCYTES % (AUTO) 6 % (2-9); NEUTROPHILS # (AUTO) 7.69 x10^3/uL (1.8-6.8); NEUTROPHILS % (AUTO) 80 % (42-75); PLATELET COUNT 167 x10^3/uL (130-400); RED CELL DISTRIBUTION WIDTH 14.2 % (9.4-14.8)
[2019-11-06 05:41] LABS: ANION GAP 5 mmol/L (5-15); CALCIUM 8.8 mg/dL (8.5-10.1); CHLORIDE 104 mmol/L (98-107)
[2019-11-06 05:43] LABS: CREATININE 3.58 mg/dL (0.7-1.3)
[2019-11-06 07:24] VITALS: BP 166/69
[2019-11-06] MEDS: BRIMONIDINE TARTRATE OPHTH 0.15%, 5ML EACHEYE SCH ×2 (07:37→21:00)
[2019-11-06] MEDS: POLYETHYLENE GLYCOL 17 GM PACKET PO SCH ×2 (07:57→20:13)
[2019-11-06] MEDS: FLUTICASONE NASAL SPRAY 16GM NAS SCH (07:58)
[2019-11-06] MEDS: MULTIVITAMIN 1 TABLET PO SCH (07:58)
[2019-11-06] MEDS: morphine SULFATE 10 MG/ML, 1ML IVPush PRN (10:47)
[2019-11-06 13:08] VITALS: BP 151/78
[2019-11-06 18:37] VITALS: BP 145/83
[2019-11-06] MEDS: LATANOPROST OPHTH 0.005%, 2.5ML EACHEYE SCH (21:00)
[2019-11-07 01:16] VITALS: BP 151/72
[2019-11-07] MEDS: HEPARIN 5,000 UNITS/ML, 1ML SQ SCH ×3 (02:58→19:55)
[2019-11-07] MEDS: METOPROLOL SUCCINATE 100 MG TAB.ER.24H PO SCH (05:07)
[2019-11-07 05:34] LABS: BASOPHILS # (AUTO) 0.04 x10^3/uL (0-0.1); BASOPHILS % (AUTO) 1 % (0-1); EOSINOPHILS # (AUTO) 0.06 x10^3/uL (0-0.4); EOSINOPHILS % (AUTO) 1 % (1-7); LYMPHOCYTES % (AUTO) 17 % (22-44); MD NO; MEAN CORPUSCULAR HEMOGLOBIN 32.8 pg (27.5-34.5); MEAN CORPUSCULAR HGB CONC 33.4 g/dL (33.2-36.2); MEAN CORPUSCULAR VOLUME 98.2 fL (81-97); MEAN PLATELET VOLUME 7.3 fL (7.4-10.4); MONOCYTES # (AUTO) 0.49 x10^3/uL (0.2-0.8); MONOCYTES % (AUTO) 5 % (2-9); NEUTROPHILS # (AUTO) 6.95 x10^3/uL (1.8-6.8); NEUTROPHILS % (AUTO) 77 % (42-75); PLATELET COUNT 170 x10^3/uL (130-400); RED BLOOD COUNT 3.12 x10^6/uL (4.38-5.82); RED CELL DISTRIBUTION WIDTH 13.9 % (9.4-14.8)
[2019-11-07 05:49] LABS: ALBUMIN 2.2 g/dL (3.4-5.0); ANION GAP 6 mmol/L (5-15); CALCIUM 8.7 mg/dL (8.5-10.1); CHLORIDE 104 mmol/L (98-107)
[2019-11-07 05:50] LABS: CREATININE 3.51 mg/dL (0.7-1.3)
[2019-11-07 07:20] VITALS: BP 147/80
[2019-11-07] MEDS: FLUTICASONE NASAL SPRAY 16GM NAS SCH (08:56)
[2019-11-07] MEDS: POLYETHYLENE GLYCOL 17 GM PACKET PO SCH ×2 (08:56→19:55)
[2019-11-07] MEDS: MULTIVITAMIN 1 TABLET PO SCH (08:56)
[2019-11-07] MEDS: BRIMONIDINE TARTRATE OPHTH 0.15%, 5ML EACHEYE SCH ×2 (08:56→21:00)
[2019-11-07] MEDS ORDERED: LACTULOSE 20 GM/30 ML UDC PO PRN (11:00)
[2019-11-07 13:29] VITALS: BP 130/75
[2019-11-07 19:14] VITALS: BP 140/67
[2019-11-07] MEDS: LATANOPROST OPHTH 0.005%, 2.5ML EACHEYE SCH (21:00)
[2019-11-07] MEDS: ACETAMINOPHEN 325 MG TABLET PO PRN (23:33)
[2019-11-08 01:44] VITALS: BP 158/77
[2019-11-08] MEDS: ACETAMINOPHEN 325 MG TABLET PO PRN ×3 (04:03→16:25)
[2019-11-08] MEDS: HEPARIN 5,000 UNITS/ML, 1ML SQ SCH ×3 (04:03→20:04)
[2019-11-08] MEDS: METOPROLOL SUCCINATE 100 MG TAB.ER.24H PO SCH (05:11)
[2019-11-08 06:37] VITALS: BP 137/69
[2019-11-08 06:39] LABS: BASOPHILS # (AUTO) 0.02 x10^3/uL (0-0.1); BASOPHILS % (AUTO) 0 % (0-1); EOSINOPHILS % (AUTO) 1 % (1-7); LYMPHOCYTES # (AUTO) 1.36 x10^3/uL (1-3.4); LYMPHOCYTES % (AUTO) 17 % (22-44); MD NO; MEAN CORPUSCULAR HEMOGLOBIN 32.8 pg (27.5-34.5); MEAN CORPUSCULAR HGB CONC 33.5 g/dL (33.2-36.2); MEAN PLATELET VOLUME 7.6 fL (7.4-10.4); MONOCYTES # (AUTO) 0.54 x10^3/uL (0.2-0.8); MONOCYTES % (AUTO) 7 % (2-9); NEUTROPHILS # (AUTO) 6.19 x10^3/uL (1.8-6.8); NEUTROPHILS % (AUTO) 75 % (42-75); PLATELET COUNT 168 x10^3/uL (130-400); RED BLOOD COUNT 3.05 x10^6/uL (4.38-5.82)
[2019-11-08 06:40] LABS: CALCIUM 8.8 mg/dL (8.5-10.1); CHLORIDE 103 mmol/L (98-107)
[2019-11-08 06:44] LABS: ALBUMIN 2.2 g/dL (3.4-5.0); ANION GAP 6 mmol/L (5-15); CREATININE 3.37 mg/dL (0.7-1.3)
[2019-11-08] MEDS: FLUTICASONE NASAL SPRAY 16GM NAS SCH (08:27)
[2019-11-08] MEDS: POLYETHYLENE GLYCOL 17 GM PACKET PO SCH ×2 (08:27→19:59)
[2019-11-08] MEDS: BRIMONIDINE TARTRATE OPHTH 0.15%, 5ML EACHEYE SCH ×2 (08:27→21:00)
[2019-11-08] MEDS: MULTIVITAMIN 1 TABLET PO SCH (08:27)
[2019-11-08 12:04] VITALS: BP 143/71
[2019-11-08] MEDS: CYCLOBENZAPRINE 10 MG TABLET PO PRN (16:25)
[2019-11-08] MEDS: AMLODIPINE 5 MG TABLET PO SCH (16:25)
[2019-11-08 19:57] VITALS: BP 130/68
[2019-11-08] MEDS: LATANOPROST OPHTH 0.005%, 2.5ML EACHEYE SCH (21:00)
[2019-11-09 00:29] VITALS: BP 146/72
[2019-11-09] MEDS: METOPROLOL SUCCINATE 100 MG TAB.ER.24H PO SCH (04:31)
[2019-11-09] MEDS: HEPARIN 5,000 UNITS/ML, 1ML SQ SCH ×3 (04:32→21:07)
[2019-11-09 06:54] VITALS: BP 130/68
[2019-11-09] MEDS: BRIMONIDINE TARTRATE OPHTH 0.15%, 5ML EACHEYE SCH ×2 (07:49→21:00)
[2019-11-09] MEDS: MULTIVITAMIN 1 TABLET PO SCH (07:50)
[2019-11-09] MEDS: AMLODIPINE 5 MG TABLET PO SCH (07:50)
[2019-11-09] MEDS: FLUTICASONE NASAL SPRAY 16GM NAS SCH (07:50)
[2019-11-09] MEDS: POLYETHYLENE GLYCOL 17 GM PACKET PO SCH ×2 (07:50→21:00)
[2019-11-09] MEDS: ACETAMINOPHEN 325 MG TABLET PO PRN (08:01)
[2019-11-09 08:58] LABS: ANION GAP 9 mmol/L (5-15); CALCIUM 8.9 mg/dL (8.5-10.1); CHLORIDE 102 mmol/L (98-107); CREATININE 3.14 mg/dL (0.7-1.3)
[2019-11-09 12:05] VITALS: BP 146/72
[2019-11-09 20:21] VITALS: BP 136/73
[2019-11-09] MEDS: LATANOPROST OPHTH 0.005%, 2.5ML EACHEYE SCH (21:00)
[2019-11-09] MEDS: CYCLOBENZAPRINE 10 MG TABLET PO PRN (21:21)
[2019-11-10 01:03] VITALS: BP 149/79
[2019-11-10 05:32] VITALS: BP 135/73
[2019-11-10] MEDS: HEPARIN 5,000 UNITS/ML, 1ML SQ SCH ×2 (05:33→14:00)
[2019-11-10] MEDS: METOPROLOL SUCCINATE 100 MG TAB.ER.24H PO SCH (05:33)
[2019-11-10 06:53] LABS: ANION GAP 5 mmol/L (5-15); CALCIUM 9.2 mg/dL (8.5-10.1); CHLORIDE 104 mmol/L (98-107)
[2019-11-10 06:54] LABS: CREATININE 3.07 mg/dL (0.7-1.3)
[2019-11-10 08:45] VITALS: BP 125/76
[2019-11-10] MEDS: BRIMONIDINE TARTRATE OPHTH 0.15%, 5ML EACHEYE SCH (09:00)
[2019-11-10] MEDS: POLYETHYLENE GLYCOL 17 GM PACKET PO SCH (09:00)
[2019-11-10 11:25] VITALS: BP 145/75
[2019-11-10] MEDS: FLUTICASONE NASAL SPRAY 16GM NAS SCH (11:31)
[2019-11-10] MEDS: MULTIVITAMIN 1 TABLET PO SCH (11:32)
[2019-11-10] MEDS: AMLODIPINE 5 MG TABLET PO SCH (11:32)
[2019-11-10 13:11] VITALS: BP 147/77
== END 2019-11-10 17:32 | DRG 683 ==
LOC: ED 16:34 → SUATTDRO 17:08 → EDIP 17:22 → 4EST 18:52
PROVIDERS: ADMIT Hospitalist; ATTEND Hospitalist
PROC: 0T9B70Z Drainage of Bladder with Drainage Device, Via Natural or Artificial Opening (ICD-10-PCS; principal; 2019-11-04)
DX: N17.0 Acute kidney failure with tubular necrosis (principal); I13.0 Hypertensive heart and chronic kidney disease with heart failure and stage 1 through stage 4 chronic kidney disease, or unspecified chronic kidney disease; G93.40 Encephalopathy, unspecified; I50.30 Unspecified diastolic (congestive) heart failure; N40.1 Benign prostatic hyperplasia with lower urinary tract symptoms; N18.4 Chronic kidney disease, stage 4 (severe); D63.8 Anemia in other chronic diseases classified elsewhere; E78.5 Hyperlipidemia, unspecified; H40.9 Unspecified glaucoma; K59.00 Constipation, unspecified; M16.11 Unilateral primary osteoarthritis, right hip; M21.70 Unequal limb length (acquired), unspecified site; M71.20 Synovial cyst of popliteal space [Baker], unspecified knee; R33.8 Other retention of urine; R62.7 Adult failure to thrive; Z66 Do not resuscitate; Z87.891 Personal history of nicotine dependence; Z90.79 Acquired absence of other genital organ(s)
CPT/HCPCS: 36415; 70450; 71045; 72192; 74022; 76770; 80048; 80053; 80069; 81001; 82550; 82570; 83520; 83605; 84100; 84155; 84156; 84165; 84166; 84300; 84443; 85025; 85610; 85730; 86256; 87086; 93005; 96374; 96376; 99285; G0378; J1170; J1644; J2270; J7120